=== PATIENT | female | born 1990 | race Caucasian/White ===

== ENCOUNTER 2016-10-08 18:40 | Emergency (ER) | payer OTHER ==
[~2016-10-08] VITALS: Ht 157.5 cm; Wt 47.1 kg
[2016-10-08 19:52] LABS: HEMOGLOBIN 13.7 g/dL (11.7-16.4)
[2016-10-08 20:04] LABS: BLOOD UREA NITROGEN 10 mg/dL (7-18)
[2016-10-08 20:10] LABS: ASPARTATE AMINO TRANSFERASE 8 U/L (15-37)
[2016-10-08 22:10] LABS: PATH.CAST-FLAG NOT PRESENT; SPERM-FLAG NOT PRESENT; SRC-FLAG NOT PRESENT; XTAL-FLAG NOT PRESENT; YLC-FLAG NOT PRESENT
[2016-10-08 22:39] VITALS: BP 127/69
== END 2016-10-08 22:43 | disposition home or self-care (01) ==
LOC: ED 22:35
DX: O03.9 Complete or unspecified spontaneous abortion without complication (principal)
CPT/HCPCS: 36415; 76801; 80053; 81001; 84702; 85025; 86850; 86900

== ENCOUNTER 2019-02-12 13:57 | Emergency (ER) | payer SELFPAY ==
[~2019-02-12] VITALS: Ht 157.5 cm; Wt 51.4 kg
[2019-02-12 14:00] VITALS: BP 131/86
== END 2019-02-12 14:34 | disposition home or self-care (01) ==
LOC: ED 14:30
DX: H66.013 Acute suppurative otitis media with spontaneous rupture of ear drum, bilateral (principal)
CPT/HCPCS: 99283

== ENCOUNTER 2020-03-20 11:08 | Inpatient (IN) | payer MEDICAID ==
[~2020-03-20] VITALS: Ht 157.5 cm; Wt 62.0 kg
[2020-03-20] MEDS ORDERED: OXYTOCIN 30U/ 0.9% NaCL 500ML 500 ML IV ONE (11:12)
[2020-03-20] MEDS ORDERED: D5%-LACTATED RINGERS 1,000 ML IV SCH (11:12)
[2020-03-20] MEDS ORDERED: LACTATED RINGERS 1,000 ML IV SCH (11:12)
[2020-03-20] MEDS ORDERED: NEWBORN KIT ONE (11:16)
[2020-03-20] MEDS ORDERED: OXYTOCIN 30U/ 0.9% NaCL 500ML 500 ML ONE (11:17)
[2020-03-20] MEDS ORDERED: MISOPROSTOL 200 MCG TABLET ONE ×2 (11:17→13:18)
[2020-03-20] MEDS ORDERED: LIDOCAINE 1%, 20ML ONE (11:17)
[2020-03-20] MEDS ORDERED: OXYTOCIN 10 UNITS/ML, 1ML ONE (11:23)
[2020-03-20] MEDS ORDERED: TERBUTALINE 1 MG/ML, 1ML IVPush PRN (11:30)
[2020-03-20] MEDS ORDERED: TERBUTALINE 1 MG/ML, 1ML SQ PRN (11:30)
[2020-03-20] MEDS ORDERED: FENTANYL PF 100 MCG/2ML IVPush PRN (11:30)
[2020-03-20] MEDS ORDERED: METOCLOPRAMIDE 5 MG/ML, 2ML IVPush PRN (11:30)
[2020-03-20] MEDS ORDERED: ALUMINUM/MAG/SIMETHICONE 30 ML UDC PO PRN (11:30)
[2020-03-20] MEDS ORDERED: ONDANSETRON 2MG/ML, 2ML IVPush PRN (11:30)
[2020-03-20] MEDS ORDERED: CALCIUM CARBONATE 500 MG TAB.CHEW PO PRN ×2 (11:30→13:00)
[2020-03-20] MEDS ORDERED: SODIUM CITRATE/CITRIC ACID 30 ML UDC PO PRN (11:30)
[2020-03-20] MEDS ORDERED: IBUPROFEN 600 MG TABLET ONE (12:29)
[2020-03-20] MEDS: OXYTOCIN 30U/ 0.9% NaCL 500ML 500 ML IV SCH ×2 (12:33→22:33)
[2020-03-20 12:55] LABS: MEAN CORPUSCULAR HEMOGLOBIN 27.8 pg (27.0-34.8); MEAN CORPUSCULAR VOLUME 84.4 fL (80-100); MEAN PLATELET VOLUME 8.4 fL (7.4-10.4); PLATELET COUNT 227 x10^3/uL (130-400); RED BLOOD COUNT 4.06 x10^6/uL (3.82-5.3); RED CELL DISTRIBUTION WIDTH 13.3 % (9.6-15.2)
[2020-03-20] MEDS ORDERED: MAGNESIUM HYDROXIDE 8%, 30ML UDC PO PRN (13:00)
[2020-03-20] MEDS ORDERED: IBUPROFEN 200 MG TABLET PO PRN (13:00)
[2020-03-20] MEDS ORDERED: MISOPROSTOL 200 MCG TABLET PR PRN (13:00)
[2020-03-20] MEDS ORDERED: METHYLERGONOVINE 0.2 MG/ML IM PRN (13:00)
[2020-03-20] MEDS ORDERED: ACETAMINOPHEN 325 MG TABLET PO PRN ×2 (13:00)
[2020-03-20] MEDS ORDERED: SIMETHICONE 80 MG CHEW TAB PO PRN (13:00)
[2020-03-20] MEDS ORDERED: ONDANSETRON 2MG/ML, 2ML IV PRN (13:00)
[2020-03-20] MEDS ORDERED: IBUPROFEN 600 MG TABLET PO PRN (13:00)
[2020-03-20] MEDS ORDERED: OXYcodone/APAP 5/325MG TABLET PO PRN ×2 (13:00)
[2020-03-20] MEDS ORDERED: IBUPROFEN 800 MG TABLET PO PRN ×2 (13:00)
[2020-03-20] MEDS ORDERED: OXYTOCIN 10 UNITS/ML, 1ML IM ONE (13:00)
[2020-03-20] MEDS ORDERED: OXYTOCIN 10 UNITS/ML, 1ML IM PRN (13:00)
[2020-03-20 13:17] LABS: MD YES
[2020-03-20 13:19] LABS: <PLATELET ESTIMATE> ADEQUATE; <PLT MORPHOLOGY> NORMAL PLT MORPH; <RBC MORPHOLOGY> NORMAL; BAND#(MANUAL) 0.39 x10^3/uL; BANDS%(MANUAL) 2 % (0-7); LYMPH#(MANUAL) 1.35 x10^3/uL (1-3.4); LYMPHS% (MANUAL) 7 % (22-44); MONOS#(MANUAL) 0.19 x10^3/uL (0.3-2.7); MONOS% (MANUAL) 1 % (2-9); SEG#(MANUAL) 17.37 x10^3/uL (1.8-6.8); SEGS% (MANUAL) 90 % (42-75)
[2020-03-20 17:18] VITALS: BP 136/86
[2020-03-20 19:17] LABS: MEAN CORPUSCULAR HGB CONC 33.1 g/dL (32.4-35.8); MEAN CORPUSCULAR VOLUME 84.5 fL (80-100); MEAN PLATELET VOLUME 8.7 fL (7.4-10.4); PLATELET COUNT 220 x10^3/uL (130-400); RED BLOOD COUNT 4.03 x10^6/uL (3.82-5.3); RED CELL DISTRIBUTION WIDTH 13.4 % (9.6-15.2)
[2020-03-20 19:41] VITALS: BP 91/57
[2020-03-20] MEDS: IBUPROFEN 600 MG TABLET PO PRN (19:45)
[2020-03-20] MEDS: DOCUSATE 100 MG CAPSULE PO PRN (19:45)
[2020-03-20 20:26] LABS: BASOPHILS # (AUTO) 0.01 x10^3/uL (0-0.1); BASOPHILS % (AUTO) 0 % (0-1); EOSINOPHILS % (AUTO) 0 % (1-7); LYMPHOCYTES # (AUTO) 0.98 x10^3/uL (1-3.4); LYMPHOCYTES % (AUTO) 5 % (22-44); MD SCAN; MONOCYTES # (AUTO) 0.71 x10^3/uL (0.2-0.8); MONOCYTES % (AUTO) 4 % (2-9); NEUTROPHILS # (AUTO) 16.88 x10^3/uL (1.8-6.8); NEUTROPHILS % (AUTO) 91 % (42-75)
[2020-03-21 00:21] VITALS: BP 94/57
[2020-03-21] MEDS: IBUPROFEN 600 MG TABLET PO PRN ×3 (02:25→15:25)
[2020-03-21 04:30] VITALS: BP 95/60
[2020-03-21 07:59] VITALS: BP 101/65
[2020-03-21] MEDS ORDERED: OXYC-302 PO (08:18)
[2020-03-21] MEDS ORDERED: IBUP-1223 PO (08:18)
[2020-03-21] MEDS: OXYTOCIN 30U/ 0.9% NaCL 500ML 500 ML IV SCH ×2 (08:33→18:33)
[2020-03-21] MEDS: DOCUSATE 100 MG CAPSULE PO PRN (08:41)
[2020-03-21] MEDS ORDERED: PRENATAL VIT/IRON/FA 1 EACH TABLET PO SCH (09:00)
== END 2020-03-21 08:30 | disposition home or self-care (01) | DRG 807 ==
LOC: LDOP 11:08 → LDIP 11:18 → 2NW 13:30
PROVIDERS: ADMIT Obstetrics & Gynecology; ATTEND Obstetrics & Gynecology
PROC: 10E0XZZ Delivery of Products of Conception, External Approach (ICD-10-PCS; principal; 2020-03-20)
PROC: 0W8NXZZ Division of Female Perineum, External Approach (ICD-10-PCS; 2020-03-20)
DX: O62.2 Other uterine inertia (principal); Z37.0 Single live birth; Z3A.40 40 weeks gestation of pregnancy; Z88.8 Allergy status to other drugs, medicaments and biological substances
CPT/HCPCS: 36415; 85025; 86592; 86850; 86900; G0378

== ENCOUNTER 2021-04-17 23:19 | Inpatient (IN) | payer MEDICAID ==
[~2021-04-17] VITALS: Ht 157.5 cm; Wt 46.5 kg
[~2021-04-17 23:19] MED LIST: IBUP-1223 PO; OXYC1TAB12 PO
[2021-04-18] MEDS ORDERED: TERBUTALINE 1 MG/ML, 1ML IVPush PRN
[2021-04-18] MEDS ORDERED: LACTATED RINGERS 1,000 ML IV SCH
[2021-04-18] MEDS ORDERED: SODIUM CITRATE/CITRIC ACID 30 ML UDC PO PRN
[2021-04-18] MEDS ORDERED: D5%-LACTATED RINGERS 1,000 ML IV SCH
[2021-04-18] MEDS ORDERED: TERBUTALINE 1 MG/ML, 1ML SQ PRN
[2021-04-18] MEDS ORDERED: FENTANYL PF 100 MCG/2ML IVPush PRN
[2021-04-18] MEDS ORDERED: CALCIUM CARBONATE 500 MG TAB.CHEW PO PRN
[2021-04-18] MEDS ORDERED: OXYTOCIN 30U/ 0.9% NaCL 500ML 500 ML IV ONE
[2021-04-18] MEDS ORDERED: FENTANYL PF 100 MCG/2ML IV PRN
[2021-04-18] MEDS ORDERED: ONDANSETRON 2MG/ML, 2ML IVPush PRN
[2021-04-18 00:18] LABS: BASOPHILS % (AUTO) 0 % (0-1); EOSINOPHILS % (AUTO) 1 % (1-7); LYMPHOCYTES % (AUTO) 19 % (22-44); MEAN CORPUSCULAR HEMOGLOBIN 23.1 pg (27.0-34.8); MEAN CORPUSCULAR HGB CONC 32.9 g/dL (32.4-35.8); MEAN PLATELET VOLUME 8.2 fL (7.4-10.4); MONOCYTES % (AUTO) 7 % (2-9); NEUTROPHILS % (AUTO) 73 % (42-75); PLATELET COUNT 184 x10^3/uL (130-400); RED BLOOD COUNT 3.81 x10^6/uL (3.82-5.3); RED CELL DISTRIBUTION WIDTH 16.5 % (9.6-15.2)
[2021-04-18 00:40] VITALS: BP 105/64
[2021-04-18] MEDS ORDERED: NEWBORN KIT ONE (01:12)
[2021-04-18] MEDS ORDERED: LIDOCAINE 1%, 20ML ONE (01:12)
[2021-04-18] MEDS ORDERED: MISOPROSTOL 200 MCG TABLET ONE (01:12)
[2021-04-18] MEDS ORDERED: IBUPROFEN 600 MG TABLET ONE (05:16)
[2021-04-18] MEDS: IBUPROFEN 800 MG TABLET PO PRN ×3 (05:21→21:31)
[2021-04-18] MEDS: DOCUSATE 100 MG CAPSULE PO PRN ×3 (05:21→21:31)
[2021-04-18] MEDS ORDERED: OXYcodone/APAP 5/325MG TABLET PO PRN (05:30)
[2021-04-18] MEDS ORDERED: ACETAMINOPHEN 325 MG TABLET PO PRN ×2 (05:30)
[2021-04-18] MEDS ORDERED: MAGNESIUM HYDROXIDE 8%, 30ML UDC PO PRN (05:30)
[2021-04-18] MEDS ORDERED: METHYLERGONOVINE 0.2 MG/ML IM PRN (05:30)
[2021-04-18] MEDS ORDERED: SIMETHICONE 80 MG CHEW TAB PO PRN (05:30)
[2021-04-18] MEDS ORDERED: OXYTOCIN 10 UNITS/ML, 1ML IM PRN (05:30)
[2021-04-18] MEDS ORDERED: OXYcodone IR 5MG TABLET PO PRN (05:30)
[2021-04-18] MEDS ORDERED: MISOPROSTOL 200 MCG TABLET PR PRN (05:30)
[2021-04-18] MEDS ORDERED: TRANEXAMIC ACID 100 MG/ML, 10ML IV ONE (05:30)
[2021-04-18] MEDS: OXYTOCIN 30U/ 0.9% NaCL 500ML 500 ML IV SCH ×15 (05:30→22:42)
[2021-04-18] MEDS ORDERED: ONDANSETRON 2MG/ML, 2ML IV PRN (05:30)
[2021-04-18] MEDS ORDERED: CARBOPROST TROMETHAMINE 250 MCG/ML, 1ML IM PRN (05:30)
[2021-04-18] MEDS ORDERED: RHOGAM FROM BLOOD BANK 1 NOTE EA IM/IV ONE (05:30)
[2021-04-18] MEDS ORDERED: DIPH,PERTUSS(ACELL),TET VAC/PF NC IM-VACC PRN (05:30)
[2021-04-18 09:00] VITALS: BP 110/73
[2021-04-18] MEDS: PRENATAL VIT/IRON/FA 1 EACH TABLET PO SCH (09:00)
[2021-04-18 12:21] LABS: BASOPHILS % (AUTO) 1 % (0-1); EOSINOPHILS % (AUTO) 0 % (1-7); LYMPHOCYTES % (AUTO) 8 % (22-44); MEAN CORPUSCULAR HEMOGLOBIN 22.7 pg (27.0-34.8); MEAN CORPUSCULAR HGB CONC 32.1 g/dL (32.4-35.8); MEAN PLATELET VOLUME 8.1 fL (7.4-10.4); MONOCYTES % (AUTO) 8 % (2-9); NEUTROPHILS % (AUTO) 83 % (42-75); PLATELET COUNT 192 x10^3/uL (130-400); RED BLOOD COUNT 3.67 x10^6/uL (3.82-5.3); RED CELL DISTRIBUTION WIDTH 16.4 % (9.6-15.2)
[2021-04-18 13:09] VITALS: BP 108/74
[2021-04-18 17:00] VITALS: BP 120/78
[2021-04-18 19:30] VITALS: BP 120/78
[2021-04-18 23:40] VITALS: BP 100/66
[2021-04-19] MEDS: OXYTOCIN 30U/ 0.9% NaCL 500ML 500 ML IV SCH ×6 (00:08→05:52)
[2021-04-19] MEDS: IBUPROFEN 800 MG TABLET PO PRN ×2 (05:56→13:41)
[2021-04-19 09:00] VITALS: BP 114/79
[2021-04-19] MEDS: DOCUSATE 100 MG CAPSULE PO PRN (10:00)
[2021-04-19] MEDS: PRENATAL VIT/IRON/FA 1 EACH TABLET PO SCH (10:00)
[2021-04-19] MEDS ORDERED: FERR325T5 PO (18:07)
[2021-04-19] MEDS ORDERED: IBUP-1222 PO (18:07)
== END 2021-04-19 19:57 | disposition home or self-care (01) | DRG 807 ==
LOC: LDOP 23:19 → LDIP 23:46 → 2NW 04-18 07:30
PROVIDERS: ADMIT Obstetrics & Gynecology; ATTEND Obstetrics & Gynecology
PROC: 10907ZC Drainage of Amniotic Fluid, Therapeutic from Products of Conception, Via Natural or Artificial Opening (ICD-10-PCS; principal; 2021-04-18)
PROC: 10E0XZZ Delivery of Products of Conception, External Approach (ICD-10-PCS; 2021-04-18)
DX: O26.893 Other specified pregnancy related conditions, third trimester (principal); Z37.0 Single live birth; Z3A.38 38 weeks gestation of pregnancy; Z67.91 Unspecified blood type, Rh negative; Z20.822 Contact with and (suspected) exposure to COVID-19
CPT/HCPCS: 36415; 85025; 85461; 86592; 86850; 86900; 87635; G0378; J2790; J2590; J7120